=== PATIENT | male | born 1945 | race Caucasian/White ===

== ENCOUNTER → 2016-06-20 | Outpatient (CLI) | payer MEDICARE, BC | END | disposition home or self-care (01) | LOC: PCVCCLINIC 11:00 | PROVIDERS: ATTEND Internal Medicine Cardiovascular Disease | DX: I25.10 Atherosclerotic heart disease of native coronary artery without angina pectoris (principal); I48.92 Unspecified atrial flutter; I48.91 Unspecified atrial fibrillation; I10 Essential (primary) hypertension; E78.00 Pure hypercholesterolemia, unspecified; I50.33 Acute on chronic diastolic (congestive) heart failure | CPT/HCPCS: G0463 ==

== ENCOUNTER → 2016-09-03 | Outpatient (CLI) | payer MEDICARE, BC ==
--- NOTE | 2016-09-01 15:17 | KCIC ---
Lumbar spine, five views Indication: Low back pain. Time of exam 2:02 p.m. Curvature is normal. There is grade 2 spondylolisthesis of L5 on S1. Slight retrolisthesis of L4 on L5 is identified as well. No significant motion during flexion or extension maneuvers is identified. The vertebral body heights are maintained. No acute compression fracture is seen. There is multilevel degenerative disc disease with variable disc space narrowing and marginal spurring. There appears to be pars defects at the L5-S1 level. Aorta is heavily calcified. Impression: Lumbar spondylosis, spondylolisthesis, and spondylolysis, as described. No acute compression fracture is seen. No abnormal motion during flexion or extension maneuvers is identified. Electronically signed by: Maxime Brown MD (Sep 01, 2016 15:16:20)
[~2016-09-03] MED LIST: ASPI-482 PO; ATOR40TA59 PO; BUDE3CAP2 PO; EZET10TA3 PO; FOLI1TAB16 PO; FURO40TA4 PO; IOHEXOL 180 MG/ML 10 ML VIAL. IT ONE; LEVO137T3 PO; LIDOCAINE 1% Multi-Dose 20 ML VIAL. ID ONE; LISI-334 PO; METO25TA4 PO; POTA20TA82 PO; WARF1TAB7 PO
--- NOTE | 2016-09-03 11:08 | KCIC ---
PROCEDURE CT lumbar spine with contrast. HISTORY Low back pain for 2-3 years. TECHNIQUE Axial images and coronal and sagittal re-formatted images are provided. Oblique axial images through selected interspaces were performed. Exam was performed post myelogram, myelogram report will be dictated separately. Patient was scanned supine. One or more of the following individualized dose reduction techniques were utilized for this exam: 1. Automated exposure control. 2. Adjustment of the mA and/or kV according to patient's size. 3. Use of iterative reconstruction technique. COMPARISON None. FINDINGS Patient appears to have transitional anatomy with only 4 lumbar type vertebral bodies identified. Numbering system for this report may differ from outside priors. There is 8 millimeters of spondylolisthesis at L4-S1 secondary to bilateral L4 pars defects. There is 2 millimeters of retrolisthesis at L3-L4. There is otherwise no malalignment. There is vacuum disc at T12-L1 and L4-S1. Conus medullaris terminates at the superior endplate of L1. There is atheromatous disease in the abdominal aorta without aneurysm. Based on the numbering system of 4 lumbar type vertebral bodies, findings are as follows: T12-L1: There is a disc osteophyte complex indenting on the thecal sac. There is also mild facet hypertrophy. Midline AP diameter of the thecal sac is narrowed to 11 millimeters. There is mild to moderate foraminal narrowing. L1-L2: There is facet hypertrophy without canal or foraminal compromise. L2-L3: There is facet hypertrophy without canal or foraminal compromise. L3-L4: There is a minimal disc bulge in addition to the retrolisthesis. There is marked facet hypertrophy. This indents on the thecal sac posterior laterally bilaterally although without any significant canal stenosis or recess narrowing. Foraminal narrowing is [id number]. L4-S1: Ossific density posterior to the inferior endplate of L4 is most likely fragmented osteophyte. There is facet hypertrophy. There is no canal stenosis. There is a left paracentral soft tissue density, unclear if this is a disc herniation or ligamentum flavum hypertrophy. This narrows the left lateral recess. It could explain a left S1 radiculopathy. Finding is subtle on the routine axial series, better appreciated on the oblique axial series. IMPRESSION - Transitional type anatomy, patient has 4 lumbar type vertebral bodies. Numbering system for this report may differ from prior outside reports. - Grade 1 spondylolisthesis at L4-S1. Additional narrowing of the left lateral recess either secondary to disc herniation or ligamentum flavum hypertrophy, difficult to determine the source of this abnormal soft tissue density given the spondylolisthesis. - Additional degenerative changes in the lumbar spine, as described above. Electronically signed by: Aravind Ramsay MD (Sep 03, 2016 11:06:32)
--- NOTE | 2016-09-03 11:15 | KCIC ---
PROCEDURE Lumbar myelogram. HISTORY Low back pain for 2-3 years. TECHNIQUE Study was initially performed on the . However, a mixed injection with approximately 50 percent intrathecal and 50 percent subdural injection occurred. The CT scan was of moderate quality and therefore it was decided to repeat the study after discussion with the patient. The patient returned on the . All questions were answered. Written consent was obtained a 2nd time. Time-out procedure was performed. The patient was prepped and draped in the usual manner. 1 percent lidocaine was administered locally. 25 gauge needle could not be positioned intrathecally, therefore a 22 gauge spinal needle was utilized. 15 milliliters of Omnipaque 180 was injected. Needle was withdrawn. Patient tolerated both procedures well, no significant complications. Fluoroscopy time is 96 seconds. Image count is 8. Patient is on warfarin, patient was advised he could restart medication this evening. COMPARISON None provided. FINDINGS Spondylolisthesis at the lumbosacral junction does not change with flexion or extension. Based on subsequent CT, patient has transitional type anatomy, numbering system for this report differs from the radiograph series from the . 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 IMPRESSION 1. Lumbar myelogram without complication. 2. Transitional anatomy, 4 lumbar type vertebral bodies. Electronically signed by: Aravind Ramsay MD (Sep 03, 2016 11:13:41)
== END | disposition home or self-care (01) ==
LOC: KCIC 09-01 13:03
PROVIDERS: ATTEND Neurological Surgery
DX: M54.5 Low back pain (principal); M43.17 Spondylolisthesis, lumbosacral region
CPT/HCPCS: 72110; 72132; 72265

== ENCOUNTER → 2016-12-17 | Outpatient (CLI) | payer MEDICARE, BC ==
[~2016-12-17] MED LIST changes: +EZET10TA18 PO; -EZET10TA3 PO; -IOHEXOL 180 MG/ML 10 ML VIAL. IT ONE; -LIDOCAINE 1% Multi-Dose 20 ML VIAL. ID ONE
== END | disposition home or self-care (01) ==
LOC: PCVCCLINIC 11:34
PROVIDERS: ATTEND Internal Medicine Cardiovascular Disease
DX: I48.91 Unspecified atrial fibrillation (principal); I25.10 Atherosclerotic heart disease of native coronary artery without angina pectoris; I11.0 Hypertensive heart disease with heart failure; I50.42 Chronic combined systolic (congestive) and diastolic (congestive) heart failure; I48.92 Unspecified atrial flutter; E78.00 Pure hypercholesterolemia, unspecified; E03.9 Hypothyroidism, unspecified; I25.2 Old myocardial infarction; Z95.1 Presence of aortocoronary bypass graft; Z79.82 Long term (current) use of aspirin; Z79.899 Other long term (current) drug therapy
CPT/HCPCS: 36415; 93005; G0463

== ENCOUNTER → 2017-07-28 | Outpatient (CLI) | payer MEDICARE, BC | END | disposition home or self-care (01) | LOC: PCVCCLINIC 09:37 | DX: I11.0 Hypertensive heart disease with heart failure (principal); I50.9 Heart failure, unspecified; I48.92 Unspecified atrial flutter; I25.10 Atherosclerotic heart disease of native coronary artery without angina pectoris; R00.1 Bradycardia, unspecified; Z79.82 Long term (current) use of aspirin; Z79.899 Other long term (current) drug therapy | CPT/HCPCS: 93005; G0463 ==

== ENCOUNTER → 2018-08-06 | Outpatient (CLI) | payer OTHER, BC ==
[~2018-08-06] MED LIST changes: +REGADENOSON 0.4 MG/5 ML DISP.SYRIN. IV ONE; +WARF1TAB69 PO; -WARF1TAB7 PO
--- NOTE | 2018-08-06 11:35 | PCVCIMAG ---
APPROVED REPORT Imaging Protocol: Rest Tc-99m/Stress Tc-99m 1 day Study performed: 08/06/2018 08:57:37 Indication: CAD Patient Location: Out-Patient Stress Nurse: Traci Welch RN, Ingrid Vicente RN [place] Tech:Francine Cheemameño [facility] Ht: 6 ft 0 in Wt: 230 lbs BSA: 2.26 m2 HR: 57 bpm BP: 173/77 mmHg BMI: 31.19 Rhythm: Sinus Bradycardia, 1st degree AV block, PAC's, Normal Sinus with ST wave abnormalities Medical History Medical History: Atrial Fibrillation, HTN, Hyperlipidemia, CHF, CAD Medications: ASA, Atorvastatin, Zetia, Lisinopril, Metoprolol, Coumadin Allergies: No known drug allergies Cardiac Risk Factors: Age Previous Cardiac Procedures: CABG Pretest Chest Pain Characteristics: No chest pain Exercise History: Physically active Meds Held (24 hrs): Metoprolol Resting Data Rest SPECT myocardial perfusion imaging was performed in supine position 45 minutes following the intravenous injection of 10.1 mCi of Tc-99m Sestamibi. Time of rest injection: 0810 Date: 08/06/2018 Administration Route: IV Administration Site: Left AC Pharmacologic Stress Pharmacologic stress test was performed by injecting Regadenoson 0.4 mg IV push over 10-15 seconds immediately followed by the intravenous injection of 31.8 mCi of Tc-99m Sestamibi. Time of stress injection: 1000 Date: 08/06/2018 Administration Route: IV Administration Site: Left AC Gated Stress SPECT was performed 45 minutes after stress injection. The images were gated to evaluate regional wall motion and calculate left ventricular ejection fraction. Stress Test Details Stress Test: Pharmacologic stress testing performed using 0.4 mg of regadenoson per 5 mL given IV over 10 seconds. Reason for pharmacologic stress test: neck and back issues. HRMax Heart Rate (APMHR): 148 bpm Resting HR: 575 bpmTarget HR (85% APMHR): 125 bpm Max HR Achieved: 76 bpm % of APMHR: 51 Recovery HR: 70 bpm BP Resting BP: 173/77 mmHg Max BP: 180/91 mmHg Recovery BP: 184/82 mmHg ECG Resting ECG: Sinus Rhythm, nonspecific ST-T abnormalities Stress ECG: Sinus Rhythm, nonspecific ST-T abnormalities ST Change: Non-ischemic Arrhythmia: APC's, VPC's Recovery ECG: Sinus Rhythm, 1st degree AV block, ST wave abnormalities Clinical Reason for Termination: Completed protocol Stress Symptoms: None Exercise duration: 0 min 55 sec Study Quality Study: Good Study Data Post stress, the left ventricular ejection was 55%.. SSS: 12 SRS: 12 SDS: 1 TID = 0.91. Perfusion There is a medium area of mildly reduced uptake in the mid and apical segment of the inferolateral wall which is seen on the stress images as well as the resting images. This area is hypokinetic and is most consistent with myocardial scar. Wall Motion Normal left ventricular wall motion. Nuclear Conclusion ECG Findings: non-diagnostic Clinical Findings: non-diagnostic Nuclear Findings: positive for infarct Exercise Capacity: not assessed Left Ventricular Function: normal There is an incomplete infarct in the inferolateral segment with minimal vera-infarct ischemia. There is normal LV systolic function.
== END | disposition home or self-care (01) ==
LOC: PCVCIMAG 11:50
PROVIDERS: ATTEND Internal Medicine Cardiovascular Disease
DX: I25.10 Atherosclerotic heart disease of native coronary artery without angina pectoris (principal); I48.91 Unspecified atrial fibrillation; I48.92 Unspecified atrial flutter; E78.00 Pure hypercholesterolemia, unspecified; I11.0 Hypertensive heart disease with heart failure; I50.9 Heart failure, unspecified; E03.9 Hypothyroidism, unspecified; Z79.82 Long term (current) use of aspirin; Z95.1 Presence of aortocoronary bypass graft; Z98.890 Other specified postprocedural states
CPT/HCPCS: 78452; 93017; A9500; G0463; J2785

== ENCOUNTER → 2019-03-23 | Outpatient (CLI) | payer MEDICARE ==
[~2019-03-23] MED LIST changes: -EZET10TA18 PO; +EZET10TA20 PO; -REGADENOSON 0.4 MG/5 ML DISP.SYRIN. IV ONE
== END | disposition home or self-care (01) ==
LOC: PCVCCLINIC 08:00
PROVIDERS: ATTEND Internal Medicine Cardiovascular Disease
DX: I25.10 Atherosclerotic heart disease of native coronary artery without angina pectoris (principal); I10 Essential (primary) hypertension; I48.91 Unspecified atrial fibrillation; I11.0 Hypertensive heart disease with heart failure; I50.9 Heart failure, unspecified; E03.9 Hypothyroidism, unspecified
CPT/HCPCS: 36415; 93005; G0463

== ENCOUNTER → 2019-04-06 | Outpatient (CLI) | payer MEDICARE | END | disposition home or self-care (01) | LOC: PCVCCLINIC 11:10 | PROVIDERS: ATTEND Internal Medicine Cardiovascular Disease | DX: I11.0 Hypertensive heart disease with heart failure (principal); I50.9 Heart failure, unspecified; I25.10 Atherosclerotic heart disease of native coronary artery without angina pectoris; I48.20 Chronic atrial fibrillation, unspecified; R94.31 Abnormal electrocardiogram [ECG] [EKG]; E78.00 Pure hypercholesterolemia, unspecified; E03.9 Hypothyroidism, unspecified; I25.2 Old myocardial infarction; Z95.1 Presence of aortocoronary bypass graft; Z82.49 Family history of ischemic heart disease and other diseases of the circulatory system; Z79.01 Long term (current) use of anticoagulants; Z79.82 Long term (current) use of aspirin; Z79.899 Other long term (current) drug therapy | CPT/HCPCS: 93005; G0463 ==